=== PATIENT | male | born 1985 | race Caucasian/White ===

== ENCOUNTER 2018-07-09 05:33 | Day surgery (SDC) | payer OTHER ==
[~2018-07-09] VITALS: Ht 177.8 cm; Wt 89.4 kg
--- NOTE | ~2018-07-09 | O ---
[facility] [place] [address] OPERATIVE REPORT Name: KRISTIAN GRAYSON Room #: 150-6 [facility] M.R.#: [id number] Admission: 07/09/18 Attend Phys: Rodolfo De Leon MD Discharge: Date of : 89 Report #: [id number] THIS REPORT FOR: //name// CC: Rodolfo Dugganey DATE OF SERVICE: 07/09/2018 PREOPERATIVE DIAGNOSIS: Closed nasal fracture. POSTOPERATIVE DIAGNOSIS: Closed nasal fracture. PROCEDURE: Closed nasal reduction. SURGEON: Rodolfo De Leon MD ANESTHESIA: General LMA. INDICATIONS: See H and P. TECHNIQUE: After obtaining consent, the patient was brought to the operating suite. Appropriate timeout was performed. General LMA anesthesia was obtained. The bed was left in the straight position. The nose was prepped with the use of Afrin-soaked cottonoids placed in each side of the nares. These were removed after several minutes after allowing vasoconstriction of the turbinates to take place. Visualization did reveal that the nasal bones had been pushed over towards the patient's right side. Using a Boies elevator, it was introduced into the nose after measuring the approximate lengths from the inner canthus to the nasal aperture. It was introduced into the left nasal bone, and digital manipulation used to rocker the nasal fracture back over to the patient's left side. Both an audible and a palpable click were noted signifying loosening of the bony fragments. A similar procedure was needed to be done on the right side, rockering the nasal fracture more medially on the right side. This resulted in a much straighter nasal dorsal appearance. The left nasal bone ____ to drift slightly medially. So, I put a few pieces of MeroGel between the septum and the nasal bone to keep it in the lateral position. Satisfactory appearance of the nasal dorsum was noted at the end of the closed nasal reduction. The nasal skin was prepped with alcohol to remove any oil and dirt. Mastisol was applied to the nasal skin and the malar area on both sides. Quarter inch brown tape was placed over the skin directly followed by a thermoplastic splint, which was molded to the size. Another layer of brown tape was placed over this for protection. A mustache dressing was applied. He was then returned to anesthesia where he was lightened, extubated, and taken to recovery room in stable condition. [address] [address] OPERATIVE REPORT Name: KRISTIAN GRAYSON Room #: 150-6 [facility] M.R.#: [id number] Admission: 07/09/18 Attend Phys: Rodolfo De Leon MD Discharge: Date of : 89 Report #: [id number] ESTIMATED BLOOD LOSS: Scant. By: 3 Rodolfo De Leon MD /nt
[2018-07-09 07:19] VITALS: BP 113/66
[2018-07-09 08:23] VITALS: BP 113/66
== END 2018-07-09 09:25 | disposition home or self-care (01) ==
LOC: TBA 05:33 → OR 05:33
DX: S02.2XXA Fracture of nasal bones, initial encounter for closed fracture (principal); X58.XXXA Exposure to other specified factors, initial encounter; Y93.89 Activity, other specified; Y92.89 Other specified places as the place of occurrence of the external cause; Y99.8 Other external cause status
CPT/HCPCS: 50010; 50101; 51313; 53635; 62110; 62900; 64037; 70005